=== PATIENT | male | born 1965 | race Caucasian/White ===

== ENCOUNTER 2018-08-04 09:54 | Emergency (ER) | payer MEDICARE, MEDICAID ==
[~2018-08-04] VITALS: Ht 185.4 cm; Wt 98.0 kg
[2018-08-04 09:54] VITALS: BP 122/84
--- NOTE | 2018-08-04 09:54 | NUR ---
ED Nurse Note: PT BROUGHT IN BY AMBULANCE FROM HOME. PT ADMITS TO [facility] YESTERDAY WITH PLANS OF HANGING HIMSELF. PT DENIES HISTORY OF SI OR SUICIDE ATTEMPTS. PT DENIES HI. PT PLACED IN GOWN AND ALL BELONGINGS PLACED INTO BAGS EXCEPT PT'S CANE AND PHONE.
[2018-08-04] MEDS ORDERED: NEVIRAPINE ER400 MG PO (10:00)
[2018-08-04] MEDS ORDERED: METHADONE HCL5 MG PO (10:00)
[2018-08-04] MEDS ORDERED: CITALOPRAM HBR40 M1 ORAL (10:00)
[2018-08-04] MEDS ORDERED: TRAZODONE HCL150 MG ORAL (10:00)
[2018-08-04] MEDS ORDERED: CRESTOR20 MG ORAL (10:00)
[2018-08-04] MEDS ORDERED: ZOLPIDEM TARTRA10 MG ORAL (10:00)
[2018-08-04] MEDS ORDERED: descovy PO (10:00)
[2018-08-04] MEDS ORDERED: AMLODIPINE BESY10 MG ORAL (10:00)
[2018-08-04] MEDS ORDERED: LISINOPRIL40 MG ORAL (10:00)
--- NOTE | 2018-08-04 10:03 | Emergency Room Report ---
History of Present Illness General Chief Complaint: Suicidal Source: Patient (Sanchez Maldonado MD) Present Illness HPI Patient 53-year-old male presented after increased suicidal thoughts. Patient had recent had his methadone dose adjusted. Patient has prior history of chronic pain secondary to low back issues. Patient had prior history of HIV as well as hypertension and anxiety. He reports taking multiple medications. Patient states he has been eating well for several days. He denies any prior history of suicidality. He does take citalopram for anxiety. He denies any smoking or recent drug use.Patient presented for suicidal thoughts. Patient reports wanting to hang himself. He stated he made a noose. Patient reports having prior history of methadone usage. (Sanchez Maldonado MD) Allergies: Coded Allergies: No Known Allergies (Unverified , 08/04/18) Patient History Past Medical History: see triage record Reviewed Nursing Documentation: PMH: Agreed; PSxH: Agreed (Sanchez Maldonado MD) Nursing Documentation-PMH Past Medical History: No History, Except For Hx Cardiac Problems: No - HIV (Sanchez Maldonado MD) Review of Systems All Other Systems: negative except mentioned in HPI (Sanchez Maldonado MD) Physical Exam Vital Signs Date Time Temp Pulse Resp B/P (MAP) Pulse Ox O2 Delivery O2 Flow Rate FiO2 08/04/18 09:40 99.0 116 16 118/80 98 Room Air Sp02 EP Interpretation: reviewed, normal General Appearance: normal inspection, well appearing, no apparent distress, alert, GCS 15 Head: atraumatic ENT: normal ENT inspection, hearing grossly normal, normal voice Neck: normal inspection, full range of motion, supple, no bony tend Respiratory: normal inspection, lungs clear, normal breath sounds, no respiratory distress, no retraction, no wheezing Cardiovascular #1: regular rate, rhythm, no edema Gastrointestinal: normal inspection, normal bowel sounds, non tender, soft, no guarding, no hernia Genitourinary: no CVA tenderness Musculoskeletal: normal inspection, back normal, normal range of motion Neurologic: normal inspection, alert, oriented x3, responsive, tree and shrub worker III-XII nml as tested, speech normal Psychiatric: judgement/insight normal Skin: normal inspection, normal color, no rash (Sanchez Maldonado MD) Medical Decision Making Diagnostic Impression: Primary Impression: Suicidal ideation ER Course Patient presented for suicidal thoughts. Differential diagnosis includes is not limited to depression, anxiety, substance abuse opiate withdrawal, malingering. Because of complexity of patient's case laboratory testing was ordered. Patient was noted to have unremarkable laboratory testing. Patient was noted to have a negative urine drug screen apart from marijuana. Patient's blood alcohol was negative. Patient is medically cleared for psychiatric evaluation. I discussed the patient's pain management with his physician Dr. Quiroz. He advised patient have psychiatric evaluation but stated it was okay if he took one extra dose of his methadone but does not feel that he needs additional medications at this time. Patient is medically cleared for psychiatric placement. Patient will likely be transferred for suicidal thoughts.Patient states he lives alone (Sanchez Maldonado MD) ER Course Please see above note. Patient calm and cooperative. Attempts to place have not been successful. Methadone given. Await placement. Signed out to Dr. Zavaleta. (Champ Nava MD) Last Vital Signs Date Time Temp Pulse Resp B/P (MAP) Pulse Ox O2 Delivery O2 Flow Rate FiO2 08/04/18 09:40 99.0 116 16 118/80 98 Room Air (Sanchez Maldonado MD) Disposition: HOME, SELF-CARE Condition: Stable Sanchez Maldonado MD Aug 04, 2018 10:03 Champ Nava MD Aug 04, 2018 23:49
--- NOTE | 2018-08-04 10:08 | NUR ---
ED Nurse Note: PT'S BELONGINGS PLACED IN LOCKER #1.
[2018-08-04 10:27] LABS: APPEARANCE,URINE CLEAR; BILIRUBIN, URINE NEGATIVE (NEGATIVE); GLUCOSE, URINE (UA) NEGATIVE (NEGATIVE); KETONES,URINE NEGATIVE (NEGATIVE); LEUKOCYTE ESTERASE ,URINE 1+ (NEGATIVE); NITRITE,URINE NEGATIVE (NEGATIVE); PH,URINE 5 (4.5-8.0); PROTEIN,URINE 2+ (NEGATIVE); UROBILINOGEN,URINE NORMAL MG/DL (0.0-1.0)
[2018-08-04 10:28] LABS: BASOPHILS % (AUTO) 0.4 % (0.0-2.0); EOSINOPHILS % (AUTO) 0.2 % (0.0-3.0); HEMATOCRIT 51.5 % (42.0-52.0); HEMOGLOBIN 17.9 G/DL (14.2-18.0); LYMPHOCYTES % (AUTO) 18.6 % (20.0-45.0); MEAN CORPUSCULAR VOLUME 87 FL (80-99); MONOCYTES % (AUTO) 5.8 % (1.0-10.0); PLATELET COUNT 209 K/UL (150-450); RED CELL DISTRIBUTION WIDTH 12.5 % (11.6-14.8); WHITE BLOOD COUNT 8.2 K/UL (4.8-10.8)
[2018-08-04 10:42] LABS: ANION GAP 11 mmol/L (5-15); BLOOD UREA NITROGEN 15 mg/dL (7-18); CALCIUM 9.9 MG/DL (8.5-10.1); CARBON DIOXIDE 27 MMOL/L (21-32); CHLORIDE 102 MMOL/L (98-107); CREATININE 1.5 MG/DL (0.55-1.30); POTASSIUM 4.1 MMOL/L (3.5-5.1); SODIUM 139 MMOL/L (136-145)
[2018-08-04 10:45] LABS: COLOR,URINE YELLOW
[2018-08-04 10:47] LABS: ALANINE AMINOTRANSFERASE 38 U/L (12-78); ALBUMIN 4.5 G/DL (3.4-5.0); ALBUMIN/GLOBULIN RATIO 1.3 (1.0-2.7); ALKALINE PHOSPHATASE 79 U/L (46-116); ASPARTATE AMINO TRANSFERASE 22 U/L (15-37); BILIRUBIN,TOTAL 0.9 MG/DL (0.2-1.0)
--- NOTE | 2018-08-04 11:03 | NUR ---
ED Nurse Note: METHADONE 5MG NOT AVAILBLE IN [facility]. PHARMACY CALLED. WILL BE READY IN 5-10 MINUTES.
[2018-08-04] MEDS ORDERED: LYRICA75 M1 ORAL (11:38)
[2018-08-04 12:00] VITALS: BP 126/86
--- NOTE | 2018-08-04 12:45 | NUR ---
ED Nurse Note: lunch tray provided.
--- NOTE | 2018-08-04 13:30 | NUR ---
ED Nurse Note: PT LAYING PEACEFULLY IN BED IN NAD. LUNCH ALREADY PROVIDED. PT AMBULATED TO BATHROOM.
[2018-08-04 14:00] VITALS: BP 124/81
--- NOTE | 2018-08-04 17:30 | NUR ---
ED Nurse Note: DINNER TRAY PROVIDED TO PT.
--- NOTE | 2018-08-04 19:08 | NUR ---
ED Nurse Note: REPORT GIVEN TO JOE GARCIA.
[2018-08-04 20:08] VITALS: BP 134/83
--- NOTE | 2018-08-04 20:09 | NUR ---
ER Nurse Note: Pt a&ox4, VSS, no signs of distress. Pt is ambulatory with cane at bedside. Pt denies pain and states "he is going through withdrawal, and want help". Pt is comfortable, calm, laying in bed. Will continue to montior.
--- NOTE | 2018-08-04 23:26 | NUR ---
So. [facility] spoke with Alek and paperwork has been faxed over to facility.
--- NOTE | 2018-08-04 23:38 | NUR ---
[facility] was called spoke to Lalita and no beds will be avaliable. Was instructed to call back in the morning after 0800.
--- NOTE | 2018-08-04 23:45 | NUR ---
[facility] was called spoke to Edwin and paperwork has been faxed over to facility for review.
--- NOTE | 2018-08-04 23:47 | NUR ---
[facility] was called spoke to Lalita and no beds will be avaliable. Was instructed to call back in the morning after 0800.
--- NOTE | 2018-08-04 23:52 | NUR ---
[facility] was called with no answer.
[2018-08-05 00:08] VITALS: BP 138/80
--- NOTE | 2018-08-05 00:09 | NUR ---
ER Nurse Note: Pt asleep, chest rise and fall noted. Pt afebrile. All safety measures met; will continue to monitor.
--- NOTE | 2018-08-05 02:15 | NUR ---
ER Nurse Note: Pt ambulatory with cane; willingly signed transfer forms. Pt a&ox4, VSS, no signs of distress. Pt calm, cooperates. Does not complain of pain. Will continue to montior
[2018-08-05] MEDS ORDERED: Norco 5mg/325mg tab ORAL ONE (03:15)
[2018-08-05 04:24] VITALS: BP 134/78
--- NOTE | 2018-08-05 04:25 | NUR ---
ER Nurse Note: Pt expressed he wanted methadone around 0330; ERMD aware and notifed. Pt was given norco (no methadone on PM shift). Pt is now asleep, no complaining of pain, no signs of distress. All safety measures met; will continue to montior.
--- NOTE | 2018-08-05 05:30 | NUR ---
ER Nurse Note: Report given to JOE Mohan at [facility].
--- NOTE | 2018-08-05 07:16 | NUR ---
ED Nurse Note: received pt from JOE Greer. Pt is sleeping in [facility]. No s/s of distress.
[2018-08-05 07:24] VITALS: BP 134/78
--- NOTE | 2018-08-05 07:25 | NUR ---
ER Nurse Note: Pt ready for transport to [facility]; Transport at pt side. Report given to JOE Dubose at 0530. Pt a&ox4, VSS, no signs of distress. Pt left with all belongings.
== END 2018-08-05 07:27 | disposition home or self-care (01) ==
LOC: EDBD 09:54 → EMR 10:25
DX: R45.851 Suicidal ideations (principal); B20 Human immunodeficiency virus [HIV] disease; I10 Essential (primary) hypertension; F41.9 Anxiety disorder, unspecified
CPT/HCPCS: 36415; 80053; 80307; 81003; 85025; 99284; G0480; 80329

== ENCOUNTER 2020-05-04 10:06 | Emergency (ER) | payer MEDICARE, MEDICAID ==
[~2020-05-04] VITALS: Ht 185.4 cm; Wt 111.1 kg
[~2020-05-04 10:06] MED LIST: AMLODIPINE BESY10 MG ORAL; CITALOPRAM HBR40 M1 ORAL; CRESTOR20 MG ORAL; LISINOPRIL40 MG ORAL; LYRICA75 M1 ORAL; METHADONE HCL5 MG PO; NEVIRAPINE ER400 MG PO; TRAZODONE HCL150 MG ORAL; ZOLPIDEM TARTRA10 MG ORAL; descovy PO
[2020-05-04 10:09] VITALS: BP 160/102
--- NOTE | 2020-05-04 10:09 | NUR ---
Note undone in EDM - 05/04/20 at 1123 by DAVON ED Nurse Note: Patient from home and walked in due to being unable to sleep x 10days. Pt denies any drug use but states that he has been drinking wine almost everyday. No reports of CP but has tremors and wa diaphoretic before ED arrival. Pt is AAO x4, ambulatory with non labored breathing. Noted patient to be anxious. No reports of SI. Skin is warm and dry upon ED arrival.
--- NOTE | 2020-05-04 10:10 | NUR ---
ED Nurse Note: Patient from home and brought in by [facility] due to being unable to sleep x 10days. Pt denies any drug use but states that he has been drinking wine almost everyday. No reports of CP but has tremors and wa diaphoretic before ED arrival. Pt is AAO x4, ambulatory with non labored breathing. Noted patient to be anxious. No reports of SI. Skin is warm and dry upon ED arrival.
[2020-05-04] MEDS ORDERED: BACLOFEN10 MG ORAL (10:11)
[2020-05-04] MEDS ORDERED: LOPERAMIDE2 MG PO (10:11)
[2020-05-04] MEDS ORDERED: GABAPENTIN100 MG ORAL (10:11)
[2020-05-04] MEDS ORDERED: MELOXICAM7.5 MG PO (10:11)
[2020-05-04] MEDS ORDERED: OMEPRAZOLE20 M2 ORAL (10:11)
[2020-05-04 10:47] LABS: BASOPHILS % (AUTO) 3.7 % (0.0-2.0); HEMATOCRIT 52.9 % (42.0-52.0); LYMPHOCYTES % (AUTO) 6.9 % (20.0-45.0); MEAN CORPUSCULAR VOLUME 84 FL (80-99); NEUTROPHILS % (AUTO) 83.3 % (45.0-75.0); PLATELET COUNT 208 K/UL (150-450); RED BLOOD COUNT 6.27 M/UL (4.70-6.10); WHITE BLOOD COUNT 9.1 K/UL (4.8-10.8)
--- NOTE | 2020-05-04 10:48 | NUR ---
ED Nurse Note: Blood and urine sent.
[2020-05-04 10:52] LABS: HEMOGLOBIN 18.8 G/DL (14.2-18.0)
[2020-05-04 10:53] LABS: CALCIUM 9.2 MG/DL (8.5-10.1); CREATININE 1.5 MG/DL (0.55-1.30); POTASSIUM 4.1 MMOL/L (3.5-5.1)
[2020-05-04 10:58] LABS: ALBUMIN 4.5 G/DL (3.4-5.0); ALBUMIN/GLOBULIN RATIO 1.3 (1.0-2.7); BILIRUBIN,TOTAL 0.9 MG/DL (0.2-1.0)
--- NOTE | 2020-05-04 11:35 | NUR ---
ED Nurse Note: Patient resting on bed with no distress and relaxed at this time. Sinus tach on case monitor [address] Yusuf at [facility] bed side.
--- NOTE | 2020-05-04 11:36 | Emergency Room Report ---
History of Present Illness General Chief Complaint: Behavioral Complaint Source: Patient Present Illness HPI Disclaimer: Please note that this report is being documented using [employer] technology. This can lead to erroneous entry secondary to incorrect interpretation by the dictating instrument. HPI: 55-year-old male history of HIV on medication, also history of insomnia presented for insomnia. He states he has had difficulty sleeping for at least 1 week. Denies any chest pain shortness of breath nausea or vomiting. He did report some mild dizziness and this is why he called EMS today. No vomiting diarrhea. He has been recently prescribed Seroquel and was taking 150 mg nightly with some relief but ran out 2 days ago. : Allergies: Coded Allergies: No Known Allergies (Unverified , 08/04/18) COVID-19 Screening Contact w/high risk pt: No Experienced COVID-19 symptoms?: No COVID-19 Testing performed SKIMMER REVERBERATORY: No Patient History Reviewed Nursing Documentation: PMH: Agreed; PSxH: Agreed Nursing Documentation-PMH Past Medical History: No History, Except For Hx Hypertension: Yes History Of Psychiatric Problem: Yes - Insomnia Review of Systems All Other Systems: negative except mentioned in HPI Physical Exam Vital Signs Date Time Temp Pulse Resp B/P (MAP) Pulse Ox O2 Delivery O2 Flow Rate FiO2 05/04/20 09:59 98.1 120 21 132/78 (96) 99 Room Air Sp02 EP Interpretation: reviewed, normal General Appearance: well appearing, no apparent distress Head: normocephalic, atraumatic Eyes: bilateral eye PERRL, bilateral eye EOMI ENT: hearing grossly normal, moist mucus membranes Neck: full range of motion, supple Respiratory: lungs clear, normal breath sounds, no rhonchi, no respiratory distress, no retraction, no wheezing Cardiovascular #1: normal peripheral pulses, no murmur, tachycardia Gastrointestinal: non tender, soft, non-distended, no guarding Neurologic: alert, oriented x3, no focal defects Psychiatric: judgement/insight normal, no suicidal/homicidal ideation Skin: normal color, warm/dry Medical Decision Making Diagnostic Impression: Primary Impression: Insomnia ER Course MDM: Differential diagnosis included but not limited to insomnia, anxiety, dehydration, less likely ACS Clinical course-patient given IV fluids in the ER. Laboratory studies showed a creatinine of 1.5. He denied any chest pain. He is currently on Seroquel nightly. I spoke with patient's primary care doctor, Dr. Martel. We will continue to titrate patient's Seroquel upward. Primary doctor will call in the prescription. Was agreeable with the plan Labs - Laboratory Tests Test 05/04/20 10:07 05/04/20 10:46 White Blood Count 9.1 K/UL (4.8-10.8) Red Blood Count 6.27 M/UL (4.70-6.10) H Hemoglobin 18.8 G/DL (14.2-18.0) *H Hematocrit 52.9 % (42.0-52.0) H Mean Corpuscular Volume 84 FL (80-99) Mean Corpuscular Hemoglobin 29.9 PG (27.0-31.0) Mean Corpuscular Hemoglobin Concent 35.5 G/DL (32.0-36.0) Red Cell Distribution Width 12.0 % (11.6-14.8) Platelet Count 208 K/UL (150-450) Mean Platelet Volume 6.7 FL (6.5-10.1) Neutrophils (%) (Auto) 83.3 % (45.0-75.0) H Lymphocytes (%) (Auto) 6.9 % (20.0-45.0) L Monocytes (%) (Auto) 6.0 % (1.0-10.0) Eosinophils (%) (Auto) 0.0 % (0.0-3.0) Basophils (%) (Auto) 3.7 % (0.0-2.0) H Sodium Level 138 MMOL/L (136-145) Potassium Level 4.1 MMOL/L (3.5-5.1) Chloride Level 99 MMOL/L (98-107) Carbon Dioxide Level 24 MMOL/L (21-32) Anion Gap 15 mmol/L (5-15) Blood Urea Nitrogen 11 mg/dL (7-18) Creatinine 1.5 MG/DL (0.55-1.30) H Estimated Glomerular Filtration Rate 48.6 mL/min (>60) Glucose Level 128 MG/DL (74-106) H Calcium Level 9.2 MG/DL (8.5-10.1) Total Bilirubin 0.9 MG/DL (0.2-1.0) Aspartate Amino Transferase (AST) 44 U/L (15-37) H Alanine Aminotransferase (ALT) 65 U/L (12-78) Alkaline Phosphatase 82 U/L (46-116) Total Protein 8.0 G/DL (6.4-8.2) Albumin 4.5 G/DL (3.4-5.0) Globulin 3.5 g/dL Albumin/Globulin Ratio 1.3 (1.0-2.7) Urine Opiates Screen Negative (NEGATIVE) Urine Barbiturates Screen Negative (NEGATIVE) Phencyclidine (PCP) Screen Negative (NEGATIVE) Urine Amphetamines Screen Negative (NEGATIVE) Urine Benzodiazepines Screen Negative (NEGATIVE) Urine Cocaine Screen Negative (NEGATIVE) Urine Marijuana (THC) Screen Positive (NEGATIVE) H On reevaluation: Patient in no acute distress Plan-discharge with continued outpatient follow-up EKG Diagnostic Results Rate: normal Rhythm: NSR Last Vital Signs Date Time Temp Pulse Resp B/P (MAP) Pulse Ox O2 Delivery O2 Flow Rate FiO2 05/04/20 10:09 98.1 113 17 160/102 98 Room Air Status: improved Disposition: HOME, SELF-CARE Condition: Stable Referrals: Ariel Macdonald MD (PCP) Benjamin Yusuf M.D. May 04, 2020 11:36
[2020-05-04 11:58] VITALS: BP 152/94
[2020-05-04 12:08] VITALS: BP 152/94
--- NOTE | 2020-05-04 12:08 | NUR ---
ER DISCHARGE NOTE: Patient is cleared to be discharged per ERMD, pt is aox4, on room air, with stable vital signs. pt was given dc instructions, pt was able to verbalize understanding, pt id band and iv site removed without complications. pt is able to ambulate with steady gait. pt took all belongings.
--- NOTE | 2020-05-05 16:06 | Cardiology Report ---
APPROVED REPORT EKG Measurement Heart [id number] <Conclusion> Sinus tachycardia Otherwise normal ECG
== END 2020-05-04 12:08 | disposition home or self-care (01) ==
LOC: EDBD 10:06 → EMR 10:19
DX: G47.00 Insomnia, unspecified (principal); B20 Human immunodeficiency virus [HIV] disease; R42 Dizziness and giddiness
CPT/HCPCS: 36415; 80053; 80307; 85025; 93005; 96360; 99284